=== PATIENT | male | born 1995 | race African-American/Black ===

== ENCOUNTER 2016-10-16 14:19 | Emergency (ER) | payer SELFPAY | END 2016-10-16 17:01 | disposition left against medical advice (07) | LOC: D.ER 14:19 | DX: N48.89 Other specified disorders of penis (principal) ==

== ENCOUNTER 2016-10-17 12:11 | Emergency (ER) | payer SELFPAY | END 2016-10-17 16:05 | disposition home or self-care (01) | LOC: D.ER 12:11 | DX: A60.00 Herpesviral infection of urogenital system, unspecified (principal) ==

== ENCOUNTER 2017-07-05 03:01 | Emergency (ER) | payer MEDICAID ==
[2017-07-05 03:25] LABS: BASOPHILS 0.2 % (0-2); EOSINOPHILS 0.7 % (0-7); HEMATOCRIT 42.1 % (42.0-54.0); HEMOGLOBIN 14.3 g/dL (13.5-17.5); LYMPHOCYTES 37.7 % (15-50); MCH 23.6 pg (26.0-34.0); MCV 69.6 fL (80.0-100.0); MEAN PLATELET VOLUME 9.8 fL (7.4-10.4); MONOCYTES 8.4 % (2-11); PLATELET COUNT 228 10x3/uL (130-400); RBC 6.05 10x6/uL (4.20-6.10); RDW 14.6 % (11.5-14.5); WBC 4.4 10x3/uL (4.8-10.8)
[2017-07-05 03:38] LABS: ALBUMIN 4.3 g/dL (3.4-5.0); ALKALINE PHOSPHATASE 65 U/L (46-116); ALT (SGPT) 21 U/L (10-68); CALC OSMOLALITY 275 mosm/kg (275-300); CALCIUM 9.1 mg/dL (8.5-10.1); CARBON DIOXIDE 30.6 mmol/L (21.0-32.0); CHLORIDE - SERUM 99 mmol/L (98-107); CREATININE - SERUM 1.1 mg/dL (0.6-1.3); GLUCOSE 104 mg/dL (74-106); LIPASE 155 U/L (73-393); POTASSIUM - SERUM 3.2 mmol/L (3.5-5.1); PROTEIN - SERUM 7.9 g/dL (6.4-8.2); SODIUM 139 mmol/L (136-145); UREA NITROGEN 8 mg/dL (7-18); eGFR NON AFRICAN AMERICAN 90 mL/min (90-120)
[2017-07-05 03:52] LABS: APPEARANCE CLEAR (CLEAR); BILIRUBIN NEGATIVE (NEGATIVE); COLOR YELLOW (YELLOW); GLUCOSE NEGATIVE (NEGATIVE); KETONE NEGATIVE (NEGATIVE); NITRITE NEGATIVE (NEGATIVE); PROTEIN NEGATIVE (NEGATIVE); UROBILINOGEN NORMAL (NORMAL)
[2017-07-05 03:53] LABS: BACTERIA NONE SEEN /hpf (NONE SEEN); EPITHELIAL CELLS 0-5 /hpf (0-5); RED CELLS - URINE 0-5 /hpf (0-5); WHITE CELLS - URINE 0-5 /hpf (0-5)
== END 2017-07-05 06:56 | disposition home or self-care (01) ==
LOC: D.ER 03:01
PROVIDERS: Emergency Medicine
DX: R10.9 Unspecified abdominal pain (principal); R11.10 Vomiting, unspecified